=== PATIENT | male | born 1985 | race Caucasian/White ===

== ENCOUNTER 2020-12-24 21:28 | Emergency (ER) | payer BC ==
[2020-12-24] MEDS ORDERED: Diphtheria,Pertussis(Acell),Tetanus Vaccine 0.5 ML Syringe IM ONE (21:58)
[2020-12-24] MEDS ORDERED: Lidocaine 1% with EPINEPHrine 1:100,000 50 ML MDV INJECT ONE (22:00)
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
== END 2020-12-24 22:59 | disposition home or self-care (01) ==
LOC: JP.ED 21:28
DX: S01.511A Laceration without foreign body of lip, initial encounter (principal); Z23 Encounter for immunization; V86.59XA Driver of other special all-terrain or other off-road motor vehicle injured in nontraffic accident, initial encounter
CPT/HCPCS: 12011; 90471; 90715; 99282; 99282-25